=== PATIENT | female | born 1995 | race Caucasian/White ===

== ENCOUNTER 2017-05-16 10:32 | Emergency (ER) | payer MEDICAID ==
[~2017-05-16] VITALS: Ht 154.9 cm; Wt 59.0 kg
[2017-05-16] MEDS ORDERED: HYDROCODONE/ACETAMINOPHEN 10-325 MG TABLET PO ONE (11:00)
[2017-05-16 13:08] VITALS: BP 126/83
== END 2017-05-16 13:53 | disposition home or self-care (01) ==
LOC: EMS 10:33
DX: S63.501A Unspecified sprain of right wrist, initial encounter (principal); S60.221A Contusion of right hand, initial encounter; Z88.8 Allergy status to other drugs, medicaments and biological substances; W22.8XXA Striking against or struck by other objects, initial encounter; Y93.89 Activity, other specified; Y92.89 Other specified places as the place of occurrence of the external cause; Y99.8 Other external cause status
CPT/HCPCS: 99284

== ENCOUNTER 2017-12-15 20:26 | Emergency (ER) | payer MEDICAID | END 2017-12-15 21:29 | disposition left against medical advice (07) | LOC: EMS 20:33 | DX: R10.9 Unspecified abdominal pain (principal); Z53.21 Procedure and treatment not carried out due to patient leaving prior to being seen by health care provider ==